=== PATIENT | female | born 1955 | race Caucasian/White ===

== ENCOUNTER 2019-12-08 09:11 | Outpatient (RCR) | payer BC, SELFPAY ==
[2019-12-08 09:40] LABS: INR 2.3; Prothrombin Time 24.5 Seconds (11.1-14.7)
== END 2020-03-07 23:59 | disposition home or self-care (01) ==
LOC: ANHLAB 09:11
PROVIDERS: PCP Nurse Practitioner Family; Visit Provider Specialist
DX: Z51.81 Encounter for therapeutic drug level monitoring (principal); I35.9 Nonrheumatic aortic valve disorder, unspecified; Z79.01 Long term (current) use of anticoagulants
CPT/HCPCS: 36415; 85610

== ENCOUNTER → 2019-12-26 09:39 | Outpatient (CLI) | payer BC, SELFPAY ==
--- NOTE | ~2019-12-26 | CT_ITS ---
EXAMINATION: CT chest w con DATE: 12/26/2019 10:17 INDICATION: Cancer of lower lobe of right lung TECHNIQUE: Computed tomography (CT) of the chest was performed without intravenous contrast. Addition al 3D reconstructions utilizing coronal maximum intensity projection (MIP) were performed. Automated exposure control and iterative reconstruction technique were employed. The dose-length product was 56 0.34 mGy-cm. COMPARISON: 07/02/2019 FINDINGS: Status post right lower lobectomy. No significant interval change in small amount of airspace opacity surrounding some of the contrast opacified vessels at the right hilum. There is mild associated arch itectural distortion. Appearance consistent with radiation pneumonitis. Unchanged 4 mm nodule in the superior segment of the left lower lobe. No new or enlarging pulmonary nodules. Very small right pleu ral effusion along side a likely suture line at the medial right lung base. Heart size is normal. Postoperative change of prior median sternotomy, aortic valve repair and likely coronary artery bypass grafting. 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 There is a small left brachiocephalic vein which extends to the right- sided superior vena cava catheter which traverses the base of the dual-lead cardiac pacemaker with le ad tips at the right atrial appendage and near the apex of the right ventricle. No pathologically enl arged thoracic lymphadenopathy. Visualized upper abdomen is unremarkable. Mild to moderate thoracic s pondylosis. IMPRESSION: 1. Status post right lower lobectomy with stable appearance of right perihilar airspace opacities wit h architectural distortion consistent with chronic radiation pneumonitis. Reviewed, dictated and finalized at location A. [employer] IMPRESSION: 1. Status post right lower lobectomy with stable appearance of right perihilar airspace opacities with architectural distortion consistent with chronic radiat ion pneumonitis.
[2019-12-26 10:05] LABS: Blood Urea Nitrogen 12 mg/dL (8-26); Estimated Glomerular Filt Rate > 60
== END ==
PROVIDERS: PCP Nurse Practitioner Family
DX: C34.31 Malignant neoplasm of lower lobe, right bronchus or lung (principal)
CPT/HCPCS: 71260; Q9967

== ENCOUNTER 2020-07-15 13:52 | Outpatient (RCR) | payer BC, SELFPAY ==
[2020-05-03 10:23] LABS: INR 2.5; Prothrombin Time 26.4 Seconds (11.1-14.7)
[2020-07-15 14:37] LABS: INR 3.1; Prothrombin Time 31.1 Seconds (11.1-14.7)
== END 2020-08-01 23:59 | disposition home or self-care (01) ==
LOC: ANHLAB 13:52
PROVIDERS: PCP Nurse Practitioner Family; Visit Provider Specialist
DX: Z51.81 Encounter for therapeutic drug level monitoring (principal); I48.91 Unspecified atrial fibrillation; Z95.2 Presence of prosthetic heart valve; Z79.01 Long term (current) use of anticoagulants
CPT/HCPCS: 36415; 85610

== ENCOUNTER → 2020-07-22 12:22 | Outpatient (CLI) | payer BC, SELFPAY ==
--- NOTE | ~2020-07-22 | CT_ITS ---
EXAMINATION: CT chest w con DATE: 07/22/2020 13:16 INDICATION: Non-small cell cancer of right lung; history of right lower lobectomy, chemotherapy and r adiation treatment TECHNIQUE: Computed tomography (CT) of the chest was performed with 75 cc Omnipaque 350 intravenous c ontrast. Automated exposure control and iterative reconstruction technique were employed. Exam dose: 571.05 mGy-cm total exam DLP. COMPARISON: 12/26/2019 CT chest FINDINGS: Status post right lower lobe lobectomy and stable right perihilar postradiation change, not significant change since 12/26/2019. No interval pulmonary infiltrate or consolidation or pulmonary mass lesion. No interval hilar or mediastinal mass lesion or lymphadenopathy. No thoracic aortic aneurysm or dissection. Right-sided pacemaker device with right atrial and ventricular leads. Status post sternotomy and aort ic valve replacement. No pericardial or pleural effusion. There are approximately 6 mm and 8 mm nodular densities in the right breast. Consider diagnostic mamm ography workup. No suspicious osteolytic or osteoblastic lesions are noted. IMPRESSION: Status post right lower lobectomy and right ear radiation for lung cancer; no recurrent or new malignancy is evident. Nonspecific 6 mm nodular densities of right breast; diagnostic mammography workup should be considere d. Reviewed, dictated and finalized at Location A. Reviewed, dictated and finalized at location A. IMPRESSION: Status post right lower lobectomy and right ear radiation for lung cancer; no recurrent or new malignancy is evident. Nonspecific 6 mm nodular densities of right breast; diagnostic mammography work up should be considered.
[2020-07-22 13:05] LABS: Estimated Glomerular Filt Rate > 60
== END ==
PROVIDERS: PCP Nurse Practitioner Family; Visit Provider Thoracic Surgery (Cardiothoracic Vascular Surgery)
DX: C34.91 Malignant neoplasm of unspecified part of right bronchus or lung (principal); R91.8 Other nonspecific abnormal finding of lung field
CPT/HCPCS: 71260; Q9967

== ENCOUNTER 2020-09-01 07:40 | Outpatient (CLI) | payer BC, SELFPAY ==
--- NOTE | ~2020-09-01 | MM_ITS ---
EXAMINATION: MM screening [facility] BI w [facility] HISTORY: Screening TECHNIQUE: Craniocaudal and mediolateral oblique 3-D tomosynthesis images were obtained and synthetic 2-D images were generated. CAD analysis was submitted and interpreted. COMPARISON: Comparison to multiple prior studies sequentially, with oldest reviewed study dated 01/31. BREAST PARENCHYMAL COMPOSITION: There are scattered areas of fibroglandular density. FINDINGS: Stable benign-appearing mass upper central aspect of the right breast, presumably intramamm miguel lymph node or cyst. There is no evidence of suspicious mass, calcification, or architectural dist ortion to suggest malignancy in either breast. There has been no suspicious interval change. IMPRESSION: 1. No mammographic evidence of malignancy. 2. Recommend routine screening mammography in one year. BI-RADS Category 2: Benign finding(s). Reviewed, dictated and finalized at location A.
== END 2020-09-01 07:41 | disposition home or self-care (01) ==
PROVIDERS: PCP Nurse Practitioner Family; Visit Provider Nurse Practitioner Family
DX: Z12.31 Encounter for screening mammogram for malignant neoplasm of breast (principal)
CPT/HCPCS: 77063; 77067

== ENCOUNTER 2020-11-29 12:52 | Outpatient (RCR) | payer BC, SELFPAY ==
[2020-09-01 09:03] LABS: INR 2.5; Prothrombin Time 26.6 Seconds (11.1-14.7)
[2020-10-02 11:08] LABS: INR 2.5; Prothrombin Time 27.6 Seconds (11.1-14.7)
[2020-11-29 13:36] LABS: INR 2.4; Prothrombin Time 26.8 Seconds (11.1-14.7)
== END 2020-11-30 23:59 | disposition home or self-care (01) ==
LOC: ANHLAB 12:52
PROVIDERS: PCP Nurse Practitioner Family; Visit Provider Specialist
DX: Z51.81 Encounter for therapeutic drug level monitoring (principal); I48.91 Unspecified atrial fibrillation; Z95.2 Presence of prosthetic heart valve; Z79.01 Long term (current) use of anticoagulants
CPT/HCPCS: 36415; 85610

== ENCOUNTER → 2021-02-02 15:07 | Outpatient (CLI) | payer BC, SELFPAY ==
--- NOTE | ~2021-02-02 | CT_ITS ---
EXAMINATION: CT diagnostic chest w con DATE: 02/02/2021 16:55 INDICATION: Non-small cell right lung cancer restaging TECHNIQUE: Computed tomography (CT) of the chest was performed with 75 cc Omnipaque 350 intravenous c ontrast. Automated exposure control and iterative reconstruction technique were employed. Exam dose: 1.00 mGy-cm total exam DLP. COMPARISON: 07/22/2020 CT chest FINDINGS: Status post sternotomy, aortic valve replacement. Right-sided pacemaker device with leads i n right atrium and right ventricle. Borderline heart size. No pericardial or pleural effusion. No thoracic aortic aneurysm or dissection. No hilar or mediastinal mass lesion or lymphadenopathy. There is right perihilar soft tissue thickening likely due to postradiation change. History right upper lobectomy. No pulmonary infiltrate or consolidation or interval pulmonary mass le luli is evident. Diffuse hepatic steatosis. Normal morphology of the adrenal glands. No suspicious osteolytic or osteoblastic lesions. IMPRESSION: No recurrent or metastatic disease is identified Reviewed, dictated and finalized at Location A. Reviewed, dictated and finalized at location A.
[2021-02-02 16:11] LABS: Estimated Glomerular Filt Rate > 60
== END ==
PROVIDERS: Visit Provider Thoracic Surgery (Cardiothoracic Vascular Surgery)
DX: C34.91 Malignant neoplasm of unspecified part of right bronchus or lung (principal); K76.0 Fatty (change of) liver, not elsewhere classified
CPT/HCPCS: 71260; Q9967

== ENCOUNTER 2021-02-02 17:20 | Outpatient (RCR) | payer BC, SELFPAY | END 2021-05-03 23:59 | disposition home or self-care (01) | LOC: ANHLAB 17:20 | PROVIDERS: PCP Nurse Practitioner Family; Visit Provider Specialist | DX: Z51.81 Encounter for therapeutic drug level monitoring (principal); I48.91 Unspecified atrial fibrillation; Z95.2 Presence of prosthetic heart valve; Z79.01 Long term (current) use of anticoagulants | CPT/HCPCS: 36415; 85610 ==

== ENCOUNTER 2021-05-29 15:08 | Outpatient (RCR) | payer BC, SELFPAY ==
[2021-05-29 16:21] LABS: Prothrombin Time 22.5 Seconds (11.1-14.7)
== END 2021-08-27 23:59 | disposition home or self-care (01) ==
LOC: ANHLAB 15:08
PROVIDERS: PCP Nurse Practitioner Family; Visit Provider Specialist
DX: Z51.81 Encounter for therapeutic drug level monitoring (principal); I48.91 Unspecified atrial fibrillation; Z79.01 Long term (current) use of anticoagulants
CPT/HCPCS: 36415; 85610

== ENCOUNTER → 2021-06-12 08:08 | Outpatient (CLI) | payer BC, SELFPAY ==
--- NOTE | ~2021-06-12 | US_ITS ---
EXAMINATION: US abdomen limited DATE: 06/12/2021 08:41 INDICATION: Cholelithiasis, chronic right upper quadrant pain TECHNIQUE: Multiple grayscale and Doppler ultrasound images of the abdomen were obtained. COMPARISON: 08/13/2019 FINDINGS: The head and body of the pancreas are normal. The pancreatic tail is obscured by bowel gas. The liver demonstrates increased echogenicity, heterogenous echotexture, and decreased through trans mission. No surface nodularity. Normal hepatopetal flow in the main portal vein. There is a stable 3 mm immobile echogenic focus of the gallbladder without posterior acoustic shadowing. There is no sophy cholecystic fluid. The normal common bile duct measures 4 mm. There was no sonographic Winter sign. IMPRESSION: 1. Stable echogenic focus of the gallbladder, consistent with polyp or immobile stone. 2. Diffuse hepatic steatosis. Reviewed, dictated and finalized at location B.
== END ==
PROVIDERS: PCP Nurse Practitioner Family; Visit Provider Nurse Practitioner Family
DX: K80.20 Calculus of gallbladder without cholecystitis without obstruction (principal); R10.11 Right upper quadrant pain; G89.29 Other chronic pain; K76.0 Fatty (change of) liver, not elsewhere classified
CPT/HCPCS: 76705

== ENCOUNTER → 2021-08-03 14:52 | Outpatient (CLI) | payer BC, SELFPAY ==
--- NOTE | ~2021-08-03 | CT_ITS ---
EXAMINATION: CT diagnostic chest w con DATE: 08/03/2021 15:25 INDICATION: History of non-small cell cancer and right lower lobectomy TECHNIQUE: Transaxial computed tomographic images of the chest were obtained after the administration of 75 cc of Omnipaque 350 intravenous contrast. The dose-length product (DLP) was 487.49 mGy-cm. Ite rative reconstruction was used. COMPARISON: 02/02/2021 FINDINGS: There are stable right perihilar upper lobe airspace opacities. Changes of right lower lobe ctomy are noted. There is a stable 5 mm nodule of the left lower lobe. There is no pleural effusion o r pneumothorax. Changes of aortic valve replacement are noted. A dual-lead pacemaker of the right anibal st wall ends with leads in the right atrium and right ventricle. There are no pathologically enlarged thoracic lymph nodes. There is mild thoracic spondylosis. IMPRESSION: 1. Stable right perihilar opacities, consistent with radiation pneumonitis. No recurrent malignancy i dentified. Reviewed, dictated and finalized at location A. IMPRESSION: 1. Stable right perihilar opacities, consistent with radiation pneumonitis. No recurrent malignancy identified.
[2021-08-03 15:15] LABS: Estimated Glomerular Filt Rate > 60
== END ==
PROVIDERS: PCP Nurse Practitioner Family; Visit Provider Thoracic Surgery (Cardiothoracic Vascular Surgery)
DX: C34.91 Malignant neoplasm of unspecified part of right bronchus or lung (principal); R91.8 Other nonspecific abnormal finding of lung field
CPT/HCPCS: 71260; Q9967

== ENCOUNTER 2021-10-09 14:25 | Outpatient (RCR) | payer BC, SELFPAY ==
[2021-08-28 11:22] LABS: INR 1.8; Prothrombin Time 20.8 Seconds (11.1-14.7)
[2021-10-09 14:59] LABS: Prothrombin Time 22.2 Seconds (11.1-14.7)
== END 2021-11-26 23:59 | disposition home or self-care (01) ==
LOC: ANHLAB 14:25
PROVIDERS: PCP Nurse Practitioner Family; Visit Provider Specialist
DX: Z51.81 Encounter for therapeutic drug level monitoring (principal); I48.91 Unspecified atrial fibrillation; Z79.01 Long term (current) use of anticoagulants
CPT/HCPCS: 36415; 85610

== ENCOUNTER → 2022-02-02 14:04 | Outpatient (CLI) | payer BC, SELFPAY ==
--- NOTE | ~2022-02-02 | CT_ITS ---
EXAMINATION:CT diagnostic chest w con DATE: 02/02/2022 14:31 INDICATION: Non-small cell lung cancer of right lung. TECHNIQUE: Computed tomography (CT) of the chest was performed with 75 mL Omnipaque 350 intravenous c ontrast. Automated exposure control and iterative reconstruction technique were employed. The dose-le ngth product (DLP) was 456.32 mGy-cm. COMPARISON: Chest CT 08/03/2021, 07/02/2019 FINDINGS: There are changes of right lower lobectomy. There are chronic airspace opacities with volum e loss involving perihilar right lung, consistent with radiation fibrosis. There are 5 mm and 4 mm no dules in left lower lobe without change. There is a 5 mm groundglass nodule in left lower lobe withou t change. These findings are stable from 07/02/2019, likely benign. No pleural effusion. There is lef t atrial enlargement of the heart. There are changes of aortic valve replacement. There is a right ch est wall pacer with leads in the right atrium and right ventricle. There is moderate thoracic spondyl osis. IMPRESSION: 1. No evidence of metastatic disease. Reviewed, dictated and finalized at location A.
[2022-02-02 14:22] LABS: Estimated Glomerular Filt Rate > 60
== END ==
PROVIDERS: Visit Provider Thoracic Surgery (Cardiothoracic Vascular Surgery)
DX: C34.91 Malignant neoplasm of unspecified part of right bronchus or lung (principal); M47.814 Spondylosis without myelopathy or radiculopathy, thoracic region
CPT/HCPCS: 71260; Q9967

== ENCOUNTER 2022-05-27 15:06 | Outpatient (RCR) | payer BC, SELFPAY ==
[2022-03-03 16:16] LABS: INR 1.9; Prothrombin Time 21.1 Seconds (11.1-14.7)
[2022-03-30 13:05] LABS: INR 1.9; Prothrombin Time 20.9 Seconds (11.1-14.7)
[2022-05-27 15:48] LABS: INR 2.3; Prothrombin Time 24.1 Seconds (11.1-14.7)
== END 2022-06-01 23:59 | disposition home or self-care (01) ==
LOC: ANHLAB 15:06
PROVIDERS: Visit Provider Specialist
DX: Z51.81 Encounter for therapeutic drug level monitoring (principal); I48.91 Unspecified atrial fibrillation; Z79.01 Long term (current) use of anticoagulants
CPT/HCPCS: 36415; 85610

== ENCOUNTER 2022-08-31 15:46 | Outpatient (RCR) | payer BC, SELFPAY ==
[2022-06-30 11:52] LABS: INR 2.1; Prothrombin Time 22.4 Seconds (11.1-14.7)
[2022-08-31 16:16] LABS: INR 2.6; Prothrombin Time 26.9 Seconds (11.1-14.7)
== END 2022-09-28 23:59 | disposition home or self-care (01) ==
LOC: ANHLAB 15:46
PROVIDERS: Visit Provider Specialist
DX: Z51.81 Encounter for therapeutic drug level monitoring (principal); I48.91 Unspecified atrial fibrillation; Z79.01 Long term (current) use of anticoagulants
CPT/HCPCS: 36415; 85610

== ENCOUNTER → 2022-09-02 09:36 | Outpatient (CLI) | payer BC, SELFPAY ==
--- NOTE | ~2022-09-02 | CT_ITS ---
EXAMINATION: CT diagnostic chest w con DATE: 09/02/2022 10:07 INDICATION: Non-small cell cancer of the right lung TECHNIQUE: Transaxial computed tomographic images of the chest were obtained after the administration of 75 cc of Omnipaque 350 intravenous contrast. The dose-length product (DLP) was 323.98 mGy-cm. Ite rative reconstruction was used. COMPARISON: 02/02/2022 FINDINGS: There are stable right perihilar airspace opacities, consistent with radiation fibrosis. Ch anges of right lower lobectomy are again noted. No pleural effusion or pneumothorax. No new masses or pulmonary nodules are identified. There are stable nodules of the left lower lobe measuring 4 mm and 5 mm. Also noted is a stable 5 mm groundglass nodule of the left lower lobe. There is left atrial en largement of the heart. Changes of aortic valve replacement are noted. A dual-lead cardiac pacemaker of the right chest wall ends with leads in expected locations. IMPRESSION: 1. Stable changes of right lower lobectomy and stable right perihilar airspace opacities, consistent with radiation fibrosis. Reviewed, dictated and finalized at location F.
[2022-09-02 09:57] LABS: Estimated Glomerular Filt Rate > 60
== END ==
PROVIDERS: PCP Nurse Practitioner Family; Visit Provider Thoracic Surgery (Cardiothoracic Vascular Surgery)
DX: C34.91 Malignant neoplasm of unspecified part of right bronchus or lung (principal); Z95.0 Presence of cardiac pacemaker
CPT/HCPCS: 71260; Q9967

== ENCOUNTER 2022-10-26 16:05 | Outpatient (RCR) | payer BC, SELFPAY ==
[2022-10-26 16:57] LABS: INR 2.1
== END 2023-01-24 23:59 | disposition home or self-care (01) ==
LOC: ANHLAB 16:05
PROVIDERS: PCP Nurse Practitioner Family; Visit Provider Specialist
DX: Z51.81 Encounter for therapeutic drug level monitoring (principal); I48.91 Unspecified atrial fibrillation; Z79.01 Long term (current) use of anticoagulants
CPT/HCPCS: 36415; 85610

== ENCOUNTER → 2023-02-28 08:57 | Outpatient (CLI) | payer MEDICARE, SELFPAY ==
--- NOTE | ~2023-02-28 | CT_ITS ---
Clinical Indication: Lung cancer CT Scan of the Chest with Contrast: Technique: Contiguous sections were acquired throughout the chest after intravenous administration of 75 cc of Omnipaque 350. Dose reduction technique was used on this scan by utilizing automated exposu re control and iterative reconstruction technique. The dose-length product (DLP) was 373.01 mGy-cm. COMPARISON: 09/02/2022 Findings: There is no evidence of any significant mediastinal, hilar or axillary lymphadenopathy. There is no f illing defect in the pulmonary arterial tree to suggest pulmonary embolus. There is no evidence of ao rtic dissection or aneurysm. There is no evidence of pleural or pericardial effusion. There is evidence of prior right lower lobectomy. There is stable peribronchial vascular soft tissue thickening at the right hilar/perihilar region. Left lung is clear. Images through the upper abdomen reveal no abnormalities. Impression: No interval change from prior exam. No evidence for active malignancy or metastatic disease. Status post right lower lobectomy with probable postradiation change at the right hilar/perihilar reg ion. Reviewed, dictated and finalized at location . Impression: No interval change from prior exam. No evidence for active malignancy or metast atic disease. Status post right lower lobectomy with probable postradiation change at the rig ht hilar/perihilar region.
[2023-02-28 09:20] LABS: Estimated Glomerular Filt Rate > 60
== END ==
PROVIDERS: PCP Nurse Practitioner Family; Visit Provider Thoracic Surgery (Cardiothoracic Vascular Surgery)
DX: C34.91 Malignant neoplasm of unspecified part of right bronchus or lung (principal); Z90.2 Acquired absence of lung [part of]
CPT/HCPCS: 71260; Q9967

== ENCOUNTER → 2023-05-05 12:58 | Outpatient (CLI) | payer OTHER, SELFPAY ==
--- NOTE | ~2023-05-05 | DEXA_ITS ---
Bone Density Report Name: CELE DUKE Age: 67 Sex: Female Ethnicity: White Date of : 1955 Indication: postmenopausal; screening for osteoporosis; height loss; asthma or emphysema; Referring Provider: MELONIE, CHERYL Study: Bone densitometry was performed. Exam Date: May 05, 2023 Accession number: [id number] Bone Density: Region BMD T-score Z-score Classification AP Spine (L1-L4) 1.056 0.1 1.9 Normal Femoral Neck (Left) 0.737 -1.0 0.5 Normal Total Hip (Left) 0.991 0.4 1.7 Normal Femoral Neck (Right) 0.776 -0.7 0.9 Normal Total Hip (Right) 0.969 0.2 1.5 Normal Total Hip Mean 0.980 0.3 1.6 Normal World Health Organization criteria for BMD impression classify patients as: Normal (T-score at or above -1.0), Osteopenia (T-score between -1.0 and -2.5), or Osteoporosis (T-score at or below -2.5). 10-year Fracture Risk: FRAX not reported because: All T-scores for Spine Total, Hip Total, Femoral Neck at or above -1.0 Clinical Information Provided by Patient: Smokes Has the following medical conditions: Asthma or Emphysema, LUNG CA - 2018 Patient maximum height was 64 Menopause Age: 57 No regular weight bearing exercise Drinks caffeinated beverages Onset of menses at age 18 Number of children 3 Impression: The patient has normal bone mass. The patient has risk factors, including: smoking. Discussion: BONE DENSITY IS ABOVE THE MINIMUM DESIRABLE LEVEL AT ALL SKELETAL SITES TESTED. This patient?s bone mineral density is above the minimum desirable level (T-score -1.0 or better) at all sites measured. The patient should follow a healthful lifestyle (good nutrition with adequate calcium and vitamin D, and appropriate weight-bearing exercise). Follow-Up: Consider repeating this study in 5 years or sooner if there is some new clinical indication. Reported by: ELANA on 05/05/2023 1:24:00 PM. Reviewed, dictated and finalized at location Lamin LAURA
--- NOTE | ~2023-05-05 | MM_ITS ---
EXAMINATION: MM screening [facility] HISTORY: Screening mammogram TECHNIQUE: Craniocaudal and mediolateral oblique 3-D tomosynthesis images were obtained and synthetic 2-D images were generated. CAD analysis was submitted and interpreted. COMPARISON: 09/01/2020, 05/20/2015 bilateral screening mammogram examinations 02/13/2015 diagnostic bilateral mammogram and limited right breast ultrasound 01/31/2015 bilateral screening mammogram BREAST PARENCHYMAL COMPOSITION: There are scattered areas of fibroglandular density. FINDINGS: Biopsy marker on the right; history of prior benign right breast biopsy. Stable approximately 5.5 x 9.7 mm circumscribed central upper mid right breast circumscribed opacity. Occasional benign calcifications. There is no evidence of suspicious mass, calcification, or archite ctural distortion to suggest malignancy in either breast. There has been no suspicious interval santana e. IMPRESSION: 1. No mammographic evidence of malignancy. 2. Recommend routine screening mammography in one year. BI-RADS Category 2: Benign finding(s). Reviewed, dictated and finalized at location A.
== END ==
PROVIDERS: PCP Nurse Practitioner Family; Visit Provider Nurse Practitioner Family
DX: Z12.31 Encounter for screening mammogram for malignant neoplasm of breast (principal); Z78.0 Asymptomatic menopausal state
CPT/HCPCS: 77063; 77067; 77080

== ENCOUNTER 2023-06-10 12:05 | Outpatient (RCR) | payer MEDICARE, SELFPAY ==
[2023-04-28 13:40] LABS: INR 2.1; Prothrombin Time 24.5 Seconds (11.1-14.7)
[2023-06-10 12:31] LABS: Prothrombin Time 24.2 Seconds (11.1-14.7)
== END 2023-07-27 23:59 | disposition home or self-care (01) ==
LOC: ANHLAB 12:05
PROVIDERS: PCP Nurse Practitioner Family; Visit Provider Specialist
DX: Z51.81 Encounter for therapeutic drug level monitoring (principal); I48.91 Unspecified atrial fibrillation; Z79.01 Long term (current) use of anticoagulants
CPT/HCPCS: 36415; 85610

== ENCOUNTER 2023-10-24 17:10 | Outpatient (RCR) | payer OTHER, SELFPAY ==
[2023-08-01 16:35] LABS: INR 2.2; Prothrombin Time 25.4 Seconds (11.1-14.7)
[2023-10-24 17:40] LABS: INR 2.3; Prothrombin Time 27.2 Seconds (11.1-14.7)
== END 2023-10-30 23:59 | disposition home or self-care (01) ==
LOC: ANHLAB 17:10
PROVIDERS: PCP Nurse Practitioner Family; Visit Provider Specialist
DX: I48.91 Unspecified atrial fibrillation (principal)
CPT/HCPCS: 36415; 85610

== ENCOUNTER 2024-02-06 13:17 | Outpatient (RCR) | payer MEDICARE, SELFPAY ==
[2023-12-21 15:33] LABS: INR 2.4; Prothrombin Time 27.5 Seconds (11.1-14.7)
[2024-02-06 14:27] LABS: INR 2.4; Prothrombin Time 28.4 Seconds (11.1-14.7)
== END 2024-03-20 23:59 | disposition home or self-care (01) ==
LOC: ANHLAB 13:17
PROVIDERS: PCP Nurse Practitioner Family; Visit Provider Specialist
DX: I48.91 Unspecified atrial fibrillation (principal)
CPT/HCPCS: 36415; 85610

== ENCOUNTER 2024-02-29 08:47 | Outpatient (CLI) | payer MEDICARE, SELFPAY ==
--- NOTE | ~2024-02-29 | CT_ITS ---
EXAMINATION:CT diagnostic chest wo con DATE: 02/29/2024 09:00 INDICATION: Non-small cell carcinoma of lung. TECHNIQUE: Computed tomography (CT) of the chest was performed without intravenous contrast. Automate d exposure control and iterative reconstruction technique were employed. The dose-length product (DLP ) was 429.38 mGy-cm. COMPARISON: chest CT 02/28/23, 02/02/22 FINDINGS: There are changes of right lower lobectomy. There is a small loculated right pleural effusi on. There are airspace opacities in perihilar right upper lobe and right lower lobe with air bronchog ludivina, consistent with radiation fibrosis. There are patchy groundglass and airspace opacities in left lower lobe. There is smooth septal thickening in the inferior lungs. There is a 3 mm nodule in left lower lobe, likely benign. There is a right chest pacer with leads in right atrium and right ventricl e. Cardiomegaly is noted. There are changes of aortic valve replacement. No pericardial effusion. The re is moderate thoracic spondylosis. IMPRESSION: 1. Right lower lobectomy. 2. Radiation fibrosis in perihilar right lung. 3. Septal thickening in the inferior lungs and groundglass and airspace opacities in left lower lobe, likely mild pulmonary edema. Pneumonia cannot be excluded. 4. Small loculated right pleural effusion. Reviewed, dictated and finalized at location A. IMPRESSION: 1. Right lower lobectomy. 2. Radiation fibrosis in perihilar right lung. 3. Septal thickening in the inferior lungs and groundglass and airspace opaciti es in left lower lobe, likely mild pulmonary edema. Pneumonia cannot be exclude d. 4. Small loculated right pleural effusion.
== END 2024-02-29 08:48 ==
LOC: MICIMG 08:48
PROVIDERS: PCP Thoracic Surgery (Cardiothoracic Vascular Surgery); Visit Provider Thoracic Surgery (Cardiothoracic Vascular Surgery)
DX: C34.90 Malignant neoplasm of unspecified part of unspecified bronchus or lung (principal); Z90.2 Acquired absence of lung [part of]; R91.8 Other nonspecific abnormal finding of lung field; J90 Pleural effusion, not elsewhere classified
CPT/HCPCS: 71250

== ENCOUNTER 2024-04-10 11:37 | Outpatient (CLI) | payer MEDICARE, SELFPAY ==
--- NOTE | ~2024-04-10 | PE_ITS ---
EXAMINATION: PET skull to mid thigh DATE: 04/10/2024 13:57 INDICATION: Non-small cell carcinoma of lung. TECHNIQUE: Blood glucose level was 90 mg/dL. 10.561 mCi of 18-fluorodeoxyglucose (18-FDG) was adminis tered i.v. Low dose computed tomography (CT) images were acquired from the base of the brain to the p roximal thighs for attenuation correction and anatomic localization. Automated exposure control was e mployed. Dose-length product (DLP) was 1102 mGy-cm. Positron emission tomography (PET) images were ac quired in the same distribution. COMPARISON: Chest CT 02/29/2024 FINDINGS: Head/neck: There is mild left supraclavicular lymphadenopathy. The largest and measures 16 x 12 mm wi th maximum SUV of 4.2. There is a subcentimeter focus of increased activity in right parotid gland wi th maximum SUV of 6.[address] correlate. Chest: There are changes of prior lower lobectomy. There is a moderate-sized loculated right pleural effusion. There is right-sided pleural thickening with increased activity with maximum SUV of 4.2. Th ere is a small left pleural effusion. There are airspace opacities in right perihilar region with max imum SUV of 4.1. There are airspace opacities with volume loss and mildly increased activity in right middle lobe. There are worsened airspace opacities in left lower lobe with maximum SUV of 4.8, consi stent with pneumonia. Cardiomegaly is noted. There are changes of aortic valve replacement. The centr al pulmonary is enlarged, consistent with pulmonary arterial hypertension. There are pacer wires in r ight atrium and right ventricle. Abdomen/pelvis/proximal thighs: The liver, gallbladder, spleen, pancreas, adrenal glands, are normal. There are 4 stones in right kidney measuring up to 4 mm. There is a 17 mm cyst in left kidney. There is diverticulosis of the colon without evidence of diverticulitis. The appendix is normal. There are no pathologically enlarged lymph nodes. There is no free intraperitoneal fluid. There is no osseous malignancy. IMPRESSION: 1. Worsened moderate-sized loculated right pleural effusion and worsening small left pleural effusion . Right-sided pleural thickening and increased pleural activity may be secondary to inflammation or m etastatic disease. 2. Atelectasis versus pneumonia in right middle lobe. Worsening pneumonia in left lower lobe. 3. Perihilar radiation fibrosis in right lung. 4. Mild left supraclavicular lymphadenopathy with increased activity, which may be reactive lymphaden opathy or metastatic disease. 5. Subcentimeter increased activity in right parotid gland without abnormal CT correlate. The differe ntial diagnosis includes reactive lymphadenopathy, benign mixed tumor, Warthin tumor, and less likely primary malignancy. Reviewed, dictated and finalized at location A. IMPRESSION: 1. Worsened moderate-sized loculated right pleural effusion and worsening small left pleural effusion. Right-sided pleural thickening and increased pleural ac tivity may be secondary to inflammation or metastatic disease. 2. Atelectasis versus pneumonia in right middle lobe. Worsening pneumonia in le ft lower lobe. 3. Perihilar radiation fibrosis in right lung. 4. Mild left supraclavicular lymphadenopathy with increased activity, which may be reactive lymphadenopathy or metastatic disease. 5. Subcentimeter increased activity in right parotid gland without abnormal CT correlate. The differential diagnosis includes reactive lymphadenopathy, benign mixed tumor, Warthin tumor, and less likely primary malignancy.
[2024-04-10 12:32] LABS: Glucose Point of Care 90 mg/dl (65-105)
== END 2024-04-10 11:38 | disposition home or self-care (01) ==
PROVIDERS: PCP Nurse Practitioner Family; Referring Provider Internal Medicine Pulmonary Disease; Visit Provider Thoracic Surgery (Cardiothoracic Vascular Surgery)
DX: C34.31 Malignant neoplasm of lower lobe, right bronchus or lung (principal); J90 Pleural effusion, not elsewhere classified; R91.8 Other nonspecific abnormal finding of lung field; J70.1 Chronic and other pulmonary manifestations due to radiation
CPT/HCPCS: 78815; A9552

== ENCOUNTER 2024-04-18 13:52 | Outpatient (CLI) | payer MEDICARE, SELFPAY ==
--- NOTE | ~2024-04-18 | XR_ITS ---
EXAMINATION: XR chest 2V Exam Date/Time: 04/18/2024 14:11 CDT HISTORY: CANCER OF LOWER LOBE OF RT LUNG Comparison: 02/02/2018; CT chest 02/29/2024. RESULT: Lines, tubes, and devices: Right chest pacer with intact leads. Intact sternotomy wires. Aortic valv e replacement. Lungs and pleura: Diffuse reticular opacities with indistinct vascular margins. Patchy airspace dise ase projecting over the right suprahilar and retrocardiac lung. Large triangular fluid density opacit y over the right lower lung. Mild right costophrenic angle blunting. Cardiomediastinal silhouette: Stable. Other: No acute osseous or upper abdominal finding. IMPRESSION: Moderate right pleural fluid, likely at least partially loculated. Additional pulmonary opacities may represent adjacent fibrosis, edema, or infection. Reviewed, dictated and finalized at location K. IMPRESSION: Moderate right pleural fluid, likely at least partially loculated. Additional p ulmonary opacities may represent adjacent fibrosis, edema, or infection.
== END 2024-04-18 13:53 | disposition home or self-care (01) ==
PROVIDERS: PCP Nurse Practitioner Family; Visit Provider Thoracic Surgery (Cardiothoracic Vascular Surgery)
DX: C34.31 Malignant neoplasm of lower lobe, right bronchus or lung (principal); R91.8 Other nonspecific abnormal finding of lung field
CPT/HCPCS: 71046

== ENCOUNTER 2024-04-26 13:28 | Outpatient (CLI) | payer MEDICARE, SELFPAY ==
--- NOTE | 2024-04-26 | ECHO_ITS ---
Patient Info Name: Lilia Robison Age: 68 years : 1955 Gender: Female Ht: 63 in Wt: 190 lbs BSA: 1.99 m2 HR: 70 bpm BP: 103 / 63 mmHg Heart Rhythm: Paced Technical Quality: Fair Exam Date: 04/26/2024 2:04 PM Exam Location: Echo Lab Patient Status: Outpatient Admit Date: 04/26/2024 Staff Ordering Physician: AllyMario MD Director Of Cloud Services: David Elizondo RDCS Attending Provider: Ally, Mario Kimble MD Referring Physician: Ally VARELA; Exam Type: CA echo dop color flow w con Study Info Indications I35.0 - Nonrheumatic aortic (valve) stenosis Complete two-dimensional, color flow and Doppler transthoracic echocardiogram is performed with contrast to opacify the left ventricle and to improve the deliniation of the left ventricle endocardial borders. Summary 1. Mild left ventricular hypertrophy with good systolic function and grade 1 diastolic noncompliance. 2. Enlarged left atrium. 3. Mild aortic valve stenosis estimated valve area 1.4 cm2. 4. Small amount of mitral and tricuspid regurgitant. Left Ventricle Left ventricular chamber dimension is normal. Left ventricular systolic function is normal, estimated at 60-65%. There is mild concentric increased left ventricular wall thickness. The left ventricular diastolic function is grade I diastolic dysfunction. Right Ventricle Right ventricular chamber dimension is normal. Linear artifact in right ventricle suggestive of catheter(s), pacemaker lead(s), or ICD lead(s). Left Atria Left atrial chamber dimension is moderately enlarged. Right Atria Right atrial chamber dimension is normal. Linear artifact in the right atrium suggestive of catheter(s), pacemaker lead(s), or ICD lead(s). Aortic Valve The aortic valve is trileaflet. There is mild aortic valve sclerosis. There is mild to moderate aortic valve stenosis with a peak velocity of 303.54 cm/s, mean gradient of 20 mmHg, and aortic valve area of 1.53 cm2. Pulmonic Valve The pulmonic valve is not well visualized. Mitral Valve The mitral valve has normal leaflets. There is trace mitral valve regurgitation. Tricuspid Valve The tricuspid valve leaflets are normal. There is mild tricuspid valve regurgitation. Moderate pulmonary hypertension, estimated pulmonary arterial systolic pressure is 64 mmHg. Pericardium/Pleural The pericardium appears normal. Aorta The aortic root size at the sinus of Valsalva is normal. Left Ventricular Outflow Tract Name Value Normal LVOT 2D LVOT Diameter 1.85 cm LVOT Doppler LVOT Peak Gradient 6 mmHg LVOT Mean Gradient 3 mmHg LVOT VTI 33.24 cm LVOT VTI/AV VTI Ratio 0.57 LVOT Stroke Volume 89.57 ml LVOT CO 4.56 l/min LVOT CI 2.29 L/min/m2 Pulmonic Valve Name Value Normal RVOT Doppler RVOT Peak Gradi
[2024-04-26] MEDS: PERFLUTREN LIPID MICROSPHERES 1.5 ML VIAL DILUTED TO 10 ML TOTAL VOLUME IV PUSH (14:45)
--- NOTE | 2024-05-11 13:13 | IVDEFINITY ---
Prior to administration of IV Definity the patient was educated on the risks and benefits of the imaging enhancing agent including potential adverse side effects. The patient verbalized understanding. Allergies were verified. No exclusion criteria were identified and at least one of the following inclusion criteria were met: 1) physician request, 2) patient technically difficult to image (per the [place] [employer] guidelines of two or more segments not discernable within the apical view), or 3) questionable left ventricular function. ?
== END 2024-04-26 13:29 | disposition home or self-care (01) ==
LOC: ANHCARD 13:29
PROVIDERS: PCP Nurse Practitioner Family; Visit Provider Thoracic Surgery (Cardiothoracic Vascular Surgery)
DX: C34.90 Malignant neoplasm of unspecified part of unspecified bronchus or lung (principal); I35.0 Nonrheumatic aortic (valve) stenosis
CPT/HCPCS: C8929; Q9957